=== PATIENT | female | born 1980 | race Caucasian/White ===

== ENCOUNTER → 2018-05-06 | Outpatient (CLI) | payer OTHER ==
[2018-05-10 18:29] LABS: CYCLIC CITRUL PEPTIDE IGG/A AB 5 units (0-19)
[2018-05-15 08:22] LABS: RHEUMATOID FACTOR LEVELS IGA 8.8 EU/ml (.)
== END ==
LOC: OD 17:00
PROVIDERS: ATTEND Family Medicine
DX: M25.50 Pain in unspecified joint (principal)
CPT/HCPCS: 36415; 84443; 85652; 86038; 86140; 86200; 86431